=== PATIENT | male | born 1960 | race Caucasian/White ===

== ENCOUNTER 2020-12-29 08:59 | Day surgery (SDC) | payer BC ==
[2020-12-27 12:50] LABS: Absolute Lymphocytes (CBC) 1.7 K/uL (0.7-4.9); Basophils % 0.5 % (0-1.3); Lymphocytes % 23.8 % (15.3-44.8); MPV 7.8 fL (7.6-11.3); RBC Red Blood Cell Count 5.17 M/uL (4.33-5.43)
[2020-12-27 13:13] LABS: BUN Blood Urea Nitrogen 10 mg/dL (7-18); Bicarbonate 28 mmol/L (21-32); Glucose Level 99 mg/dL (74-106); Potassium 4.3 mmol/L (3.5-5.1); Sodium Level 140 mmol/L (136-145)
--- NOTE | 2020-12-27 13:22 | RAD REPORT ---
EXAM DESCRIPTION: RAD - Chest Pa And Lat (2 Views) - 12/27/2020 12:57 pm CLINICAL HISTORY: pre op, pending colonoscopy COMPARISON: Portable chest May 2012 TECHNIQUE: Frontal and lateral views of the chest were obtained. FINDINGS: The lungs are clear. Heart size is normal and central vasculature is within normal limit s. No pleural effusion or pneumothorax seen. No acute bony finding noted. No aortic abnormality. IMPRESSION: No acute cardiopulmonary process. No significant change from comparison study.
--- NOTE | 2020-12-28 12:58 | EKG ---
Test Date: 2020-12-27 Test Time: 11:44:13 Engagement Specialist: ZENIA MEASUREMENT RESULTS: Intervals: Rate: 60 MI: 178 QRSD: 84 QT: 402 QTc: 402 [place]: P: 49 MI: 178 QRS: 12 T: 21 INTERPRETIVE STATEMENTS: Normal sinus rhythm Normal ECG Compared to ECG 05/02/2012 13:17:48 Sinus tachycardia no longer present Electronically Signed On 12-28-20 12:54:07 CDT by Michael Felton
[2020-12-29] MEDS ORDERED: Ringers Lactate 1,000 ML IV ONE (09:35)
[2020-12-29] MEDS ORDERED: propofoL 200 MG/20 ML VIAL IV ONE (11:52)
[2020-12-29] MEDS ORDERED: LIDOCAINE 1% MPF 5 ML VIAL ONE (11:52)
--- NOTE | 2020-12-29 12:08 | ENDO RPT ---
[address], [address] COLONOSCOPY PROCEDURE REPORT EXAM DATE: 12/29/2020 PATIENT NAME: Fredy Liz MR #: [id number] BIRTHDATE: 1960 ATTENDING: Say Yañez M.D. STATUS: outpatient DIRECTOR OF CUSTOMER ACQUISITION: Vaishnavi HIGGINS and Julia Mott RN INDICATIONS: The patient is a 60 yr old Male here for a colonoscopy due to colon cancer screening PROCEDURE PERFORMED: Colonoscopy MEDICATIONS: Per Anesthesia. ESTIMATED BLOOD LOSS: None CONSENT: The patient understands the risks and benefits of the procedure and understands that these risks include, but are not limited to: sedation, allergic reaction, infection, perforation and/or bleeding. Alternative means of evaluation and treatment include, among others: physical exam, x-rays, and/or surgical intervention. The patient elects to proceed with this endoscopic procedure. DESCRIPTION OF PROCEDURE: During intra-op preparation period all mechanical medical equipment was checked for proper function. Hand hygiene and appropriate measures for infection prevention was taken. Procedure, possible complications, alternatives including, but not limited to possibility of bleeding, perforation, tear, infection, sepsis, need for surgery, need for blood transfusion, were explained to the patient. After the risks, benefits and alternatives of the procedure were thoroughly explained, Informed consent was verified, confirmed and timeout was successfully executed by the treatment team. The patient was placed in the left lateral position. A digital rectal exam was performed and revealed an enlarged prostate. After appropriate level of anesthesia, the scope was passed. The EC-[id number] ([id number]) endoscope was introduced through the anus and advanced to the cecum, which was identified by the ileocecal valve. The quality of the prep was good. The instrument was then slowly withdrawn as the colon was fully examined. Scope withdrawal time was 7 minutes. COLON FINDINGS: A normal appearing cecum, ileocecal valve, and appendiceal orifice were identified. the ascending, transverse, descending, sigmoid colon, and rectum appeared unremarkable. Retroflexed views revealed no abnormalities. The scope was then completely withdrawn from the patient and the procedure terminated. ADVERSE EVENTS: There were no complications. IMPRESSIONS: A normal appearing cecum, ileocecal valve, and appendiceal orifice were identified. the ascending, transverse, descending, sigmoid colon, and rectum appeared unremarkable RECOMMENDATIONS: 1. fiber rich diet 2. follow-up: office 1 week(s) RECALL: Return in 0 year(s) Say Yañez M.D. eSigned: Say Yañez M.D. 12/29/2020 12:07 PM cc: Ganesh Christine M.D, Donte Tamez M.D, Eloy Renteria M.D, Juancarlos Myers M.D, Luis Jo, Johanny Colmean M.D, Johanny Madera M.D, Vincent HE, Tomeka Quintero M.D, Michael Felton M.D, Sushant Arteaga, Carl Pearl M.D, Carl Peoples M.D, Danika Vigil M.D, Dane Cortes M.D, Otilia Salazar M.D, Ishmael Oconnor M.D, Jose A Gonzalez M.D, Chrissy DICKENS, Rula Mar M.D, Alejandro Montero M.D, John Montero M.D, TGonzales Montero MDat, Jez Aguiar M.D, Eron Michelle M.D, Erum Drummond M.D, Bhupendra Evangelista M.D, Álvaro Patrick M.D, Tammy Perez M.D, Stanley Chambers M.D, Cristiano Klein M.D, Ramiro Saucedo M.D, Robb Jaimes September Mark, Cole Saez M.D, Donald Guzmán M.D, Jaqueline Berkowitz M.D, and Jaqueline Bloom M.D. CPT CODES: ICD9 CODES: 600.0 Hypertrophy (benign) of prostate PATIENT NAME: Fredy Liz MR#: [id number]
[2020-12-29 13:59] VITALS: BP 108/74; TEMP 97.4; O2SAT 95
== END 2020-12-29 12:45 | disposition home or self-care (01) ==
LOC: OR 08:59
PROVIDERS: ATTEND Surgery
PROC: 0DJD8ZZ Inspection of Lower Intestinal Tract, Via Natural or Artificial Opening Endoscopic (ICD-10-PCS; principal; 2020-12-29 10:45)
DX: Z12.11 Encounter for screening for malignant neoplasm of colon (principal); N40.0 Benign prostatic hyperplasia without lower urinary tract symptoms
CPT/HCPCS: 93005; 85025; 80048; 36415; 71046; 45378; J2704; J7120